=== PATIENT | female | born 1970 | race African-American/Black ===

== ENCOUNTER 2017-03-28 20:00 | Emergency (ER) | payer MEDICAID ==
[~2017-03-28] VITALS: Ht 160 cm; Wt 52.3 kg
[~2017-03-28 20:00] MED LIST: NOCURR
[2017-03-28 20:29] VITALS: BP 152/101
[2017-03-28] MEDS ORDERED: FERR134T2 PO (20:32)
[2017-03-28] MEDS ORDERED: KETOROLAC TROMETHAMINE 30 MG/ML VIAL IM ONE (21:30)
== END 2017-03-28 21:57 | disposition home or self-care (01) ==
LOC: EMS 20:02
DX: S10.93XA Contusion of unspecified part of neck, initial encounter (principal); S20.222A Contusion of left back wall of thorax, initial encounter; F17.210 Nicotine dependence, cigarettes, uncomplicated; V43.62XA Car passenger injured in collision with other type car in traffic accident, initial encounter; Y93.89 Activity, other specified; Y92.410 Unspecified street and highway as the place of occurrence of the external cause; Y99.9 Unspecified external cause status
CPT/HCPCS: 96372; 99283; 99406; J1885

== ENCOUNTER 2019-04-24 23:24 | Emergency (ER) | payer MEDICAID ==
[~2019-04-24] VITALS: Ht 162.6 cm; Wt 50.0 kg
[~2019-04-24 23:24] MED LIST changes: +FERR134T2 PO; -NOCURR
[2019-04-25 02:40] VITALS: BP 112/79
[2019-04-25] MEDS ORDERED: KETOROLAC TROMETHAMINE 60 MG/2 ML VIAL IM ONE (03:15)
== END 2019-04-25 04:00 | disposition home or self-care (01) ==
LOC: EMS 23:25
DX: S62.631A Displaced fracture of distal phalanx of left index finger, initial encounter for closed fracture (principal); F17.210 Nicotine dependence, cigarettes, uncomplicated; W23.0XXA Caught, crushed, jammed, or pinched between moving objects, initial encounter; Y93.89 Activity, other specified; Y92.89 Other specified places as the place of occurrence of the external cause; Y99.8 Other external cause status
CPT/HCPCS: 29130; 73130; 96372; 99283; 99406; J1885

== ENCOUNTER 2019-10-03 20:29 | Emergency (ER) | payer MEDICAID ==
[~2019-10-03] VITALS: Ht 162.6 cm; Wt 75.0 kg
[2019-10-03] MEDS ORDERED: KETOROLAC TROMETHAMINE 30 MG/ML VIAL IM ONE (23:30)
[2019-10-04 01:36] VITALS: BP 128/92
== END 2019-10-04 01:38 | disposition home or self-care (01) ==
LOC: EMS 20:32
DX: S52.501A Unspecified fracture of the lower end of right radius, initial encounter for closed fracture (principal); S52.601A Unspecified fracture of lower end of right ulna, initial encounter for closed fracture; F17.210 Nicotine dependence, cigarettes, uncomplicated; F12.90 Cannabis use, unspecified, uncomplicated; V49.40XA Driver injured in collision with unspecified motor vehicles in traffic accident, initial encounter; Y93.89 Activity, other specified; Y92.89 Other specified places as the place of occurrence of the external cause; Y99.8 Other external cause status
CPT/HCPCS: 29125; 70450; 72125; 73110; 96372; 99285; J1885

== ENCOUNTER 2020-02-10 23:31 | Emergency (ER) | payer MEDICAID, OTHER ==
[~2020-02-10] VITALS: Ht 162.6 cm; Wt 52.3 kg
[2020-02-10 23:47] VITALS: BP 177/130
[2020-02-11] MEDS ORDERED: PERTUSS(ACELL),DIPH,TET VAC/PF 0.5 ML VIAL IM ONE (00:15)
== END 2020-02-11 00:16 | disposition left against medical advice (07) ==
LOC: EMS 23:31
DX: S00.81XA Abrasion of other part of head, initial encounter (principal); F10.129 Alcohol abuse with intoxication, unspecified; F12.90 Cannabis use, unspecified, uncomplicated; F17.210 Nicotine dependence, cigarettes, uncomplicated; Y04.0XXA Assault by unarmed brawl or fight, initial encounter; Y93.89 Activity, other specified; Y92.89 Other specified places as the place of occurrence of the external cause; Y99.8 Other external cause status
CPT/HCPCS: 90471; 90715

== ENCOUNTER 2021-07-01 18:20 | Emergency (ER) | payer OTHER ==
[~2021-07-01] VITALS: Ht 162.6 cm; Wt 50.9 kg
[2021-07-01 18:25] VITALS: BP 148/88
== END 2021-07-01 19:25 | disposition home or self-care (01) ==
LOC: EMS 18:20
DX: M54.2 Cervicalgia (principal); M54.81 Occipital neuralgia; F17.210 Nicotine dependence, cigarettes, uncomplicated; F12.90 Cannabis use, unspecified, uncomplicated
CPT/HCPCS: 99283; Z7502

== ENCOUNTER 2022-02-02 12:33 | Emergency (ER) | payer OTHER ==
[~2022-02-02] VITALS: Ht 162.6 cm; Wt 59.1 kg
[2022-02-02 13:12] LABS: COVID AG,FIA SOURCE NASOPHARYNGEAL
[2022-02-02 13:51] LABS: INFLUENZA TYPE A NEGATIVE FOR TYPE A (NEGATIVE); INFLUENZA TYPE B NEGATIVE FOR TYPE B (NEGATIVE)
[2022-02-02] MEDS ORDERED: SODIUM CHLORIDE 0.9% 1,000 ML IV ONE (14:00)
[2022-02-02] MEDS ORDERED: ACETAMINOPHEN 500 MG TABLET PO ONE (14:00)
[2022-02-02 14:18] LABS: BASOPHILS % (AUTO) 0.4 % (0.0-2.0); EOSINOPHILS % (AUTO) 0.1 % (1.0-6.0); HEMATOCRIT 36.7 % (36-46); HEMOGLOBIN 12.4 g/dL (12.0-16.0); LYMPHOCYTES # (AUTO) 0.3 K/uL (1.0-4.8); LYMPHOCYTES % (AUTO) 2.7 % (22.0-44.0); MEAN CORPUSCULAR HEMOGLOBIN 30.2 pg (26.0-34.0); MEAN CORPUSCULAR HGB CONC 33.8 G/dL (31.0-37.0); MEAN CORPUSCULAR VOLUME 89 fL (80-100); MONOCYTES # (AUTO) 0.7 K/uL (0.1-1.0); MONOCYTES % (AUTO) 6.4 % (2.0-9.0); NEUTROPHILS # (AUTO) 10.6 K/uL (1.8-7.7); PLATELET COUNT (AUTO) 212 K/uL (150-450); RED BLOOD CELL COUNT(AUTO) 4.12 MIL/uL (4.00-5.20); RED CELL DISTRIBUTION WIDTH 13.7 % (11.5-14.5)
[2022-02-02 14:21] LABS: NEUTROPHILS % (AUTO) 90.4 % (40.0-70.0)
[2022-02-02 14:23] LABS: ANION GAP 9 mmol/L (8-16); CARBON DIOXIDE 27 mmol/L (22-29); CHLORIDE 98 mmol/L (98-107); GLOMERULAR FILTR. RATE CALC > 60 mL/min (>60); GLUCOSE,RANDOM 96 mg/dL (70-110); POTASSIUM 3.6 mmol/L (3.5-5.1); SODIUM SERUM 134 mmol/L (136-145); UREA NITROGEN, BLOOD 13 mg/dL (7-18)
[2022-02-02 14:28] LABS: ALANINE AMINOTRANSFERASE 31 U/L (12-78); ALBUMIN 3.7 g/dL (3.4-5.0); ALKALINE PHOSPHATASE 67 U/L (46-116); ASPARTATE AMINOTRANSFERASE 32 U/L (15-37); BILIRUBIN,TOTAL 0.4 mg/dL (0.1-1.0); TOTAL PROTEIN, SERUM 7.1 g/dL (6.4-8.2)
[2022-02-02 15:10] LABS: LACTIC ACID 0.7 mmol/L (0.4-2.0)
[2022-02-02 15:23] LABS: APPEARANCE,URINE CLEAR (CLEAR); BILIRUBIN,URINE NEGATIVE (NEGATIVE); GLUCOSE, URINE (UA) NEGATIVE (NEGATIVE); LEUKOCYTE ESTERASE ,URINE NEGATIVE (NEGATIVE); NITRATE,URINE NEGATIVE (NEGATIVE); OCCULT BLOOD,URINE MODERATE (NEGATIVE); PH,URINE 6.5 (5.0-8.0); PROTEIN,URINE NEGATIVE (NEGATIVE); SPECIFIC GRAVITIY, URINE 1.019 (1.003-1.030); UROBILINOGEN,URINE <=1.0 mg/dL (<=1.0)
[2022-02-02 15:39] LABS: BACTERIA,URINE Rare /HPF (None Seen); SQUAMOUS EPITHELIAL CELL,UR Few /LPF (None Seen); WBC,URINE 0-2 /HPF (0-5)
[2022-02-02] MEDS ORDERED: IBUPROFEN 600 MG TABLET PO ONE (16:15)
[2022-02-02 16:47] VITALS: BP 129/82
[2022-02-02] MEDS ORDERED: AZITHROMYCIN 500 MG TABLET PO ONE (17:45)
[2022-02-02] MEDS ORDERED: AZIT250T9 PO (17:46)
== END 2022-02-02 18:03 | disposition home or self-care (01) ==
LOC: EMS 12:33
DX: U07.1 COVID-19 (principal); J12.82 Pneumonia due to coronavirus disease 2019; F17.210 Nicotine dependence, cigarettes, uncomplicated
CPT/HCPCS: 36415; 71046; 80053; 81001; 83605; 84145; 85025; 87426; 87804; 96360; 99284; 99406; C9803; J7030; Q9967; U0003

== ENCOUNTER 2022-02-15 10:29 | Emergency (ER) | payer OTHER ==
[~2022-02-15] VITALS: Ht 162.6 cm; Wt 50.9 kg
[~2022-02-15 10:29] MED LIST changes: +AZIT250T9 PO; -FERR134T2 PO
[2022-02-15] MEDS ORDERED: KETOROLAC TROMETHAMINE 30 MG/ML VIAL IM ONE (14:30)
[2022-02-15 15:15] VITALS: BP 129/85
[2022-02-15] MEDS ORDERED: IBUP-1506 PO (15:35)
[2022-02-15] MEDS ORDERED: ACET-3385 PO (15:36)
== END 2022-02-15 15:50 | disposition home or self-care (01) ==
LOC: EMS 10:29
DX: M25.552 Pain in left hip (principal); F12.90 Cannabis use, unspecified, uncomplicated; F17.210 Nicotine dependence, cigarettes, uncomplicated
CPT/HCPCS: 73503; 96372; 99283; J1885

== ENCOUNTER 2024-10-28 13:11 | Emergency (ER) | payer OTHER ==
[~2024-10-28] VITALS: Ht 162.6 cm; Wt 49.0 kg
[~2024-10-28 13:11] MED LIST changes: -AZIT250T9 PO; +BACL10TA PO; +CYCL10TA16 PO; +IBUP-1492 PO; +IBUP-1554 PO; +IBUP-2070 PO; +METH-659 PO
[2024-10-28 13:19] VITALS: TEMP 98.7
[2024-10-28] MEDS ORDERED: GABA-1181 PO (14:24)
[2024-10-28] MEDS: TraMADol HCL 50 MG TABLET PO ONE (14:27)
[2024-10-28] MEDS: KETOROLAC TROMETHAMINE 30 MG/ML VIAL IM ONE (14:29)
[2024-10-28 14:38] LABS: BASOPHILS % (AUTO) 1.1 % (0.0-2.0); EOSINOPHILS % (AUTO) 0.5 % (1.0-6.0); HEMATOCRIT 42.4 % (36-46); HEMOGLOBIN 14.1 g/dL (12.0-16.0); LYMPHOCYTES # (AUTO) 2.1 K/uL (1.0-4.8); LYMPHOCYTES % (AUTO) 24.8 % (22.0-44.0); MEAN CORPUSCULAR HEMOGLOBIN 30.2 pg (26.0-34.0); MEAN CORPUSCULAR HGB CONC 33.2 G/dL (31.0-37.0); MEAN CORPUSCULAR VOLUME 91 fL (80-100); MONOCYTES # (AUTO) 0.5 K/uL (0.1-1.0); MONOCYTES % (AUTO) 6.1 % (2.0-9.0); NEUTROPHILS # (AUTO) 5.7 K/uL (1.8-7.7); NEUTROPHILS % (AUTO) 67.5 % (40.0-70.0); PLATELET COUNT (AUTO) 270 K/uL (150-450); RED BLOOD CELL COUNT(AUTO) 4.67 MIL/uL (4.00-5.20); WHITE BLOOD COUNT (AUTO) 8.5 K/uL (4.5-11.0)
[2024-10-28 14:47] LABS: ANION GAP 6 mmol/L (8-16); CALCIUM, TOTAL 9.3 mg/dL (8.8-10.5); CARBON DIOXIDE 31 mmol/L (22-29); CHLORIDE 102 mmol/L (98-107); CREATININE 0.68 mg/dL (0.60-1.30); GLOMERULAR FILTR. RATE CALC > 60 mL/min (>60); GLUCOSE,RANDOM 113 mg/dL (70-110); POTASSIUM 3.7 mmol/L (3.5-5.1); SODIUM SERUM 139 mmol/L (136-145); UREA NITROGEN, BLOOD 11 mg/dL (7-18)
[2024-10-28 14:55] LABS: TROPONIN I-HIGH SENSITIVITY 5 ng/L (<51)
[2024-10-28] MEDS ORDERED: TRAM50TA5 PO (15:24)
[2024-10-28 15:44] VITALS: BP 155/85; PULSE 79; RESP 18; O2SAT 99
== END 2024-10-28 15:45 | disposition home or self-care (01) ==
LOC: EMS 13:13
DX: S46.002A Unspecified injury of muscle(s) and tendon(s) of the rotator cuff of left shoulder, initial encounter (principal); F12.90 Cannabis use, unspecified, uncomplicated; F17.210 Nicotine dependence, cigarettes, uncomplicated; R07.89 Other chest pain; X58.XXXA Exposure to other specified factors, initial encounter; Y93.89 Activity, other specified; Y92.89 Other specified places as the place of occurrence of the external cause; Y99.8 Other external cause status
CPT/HCPCS: 99284; 80048; 84484; 85025; 36415; 93005; 96372; J1885